=== PATIENT | female | born 1995 | race Two or more races ===

== ENCOUNTER 2024-05-22 17:32 | Inpatient (IN) | payer OTHER ==
[~2024-05-22] VITALS: Ht 160 cm; Wt 82.6 kg
[2024-05-22] VITALS (8 sets, daily range): BP systolic 107–138; BP diastolic 60–78
[2024-05-22] MEDS ORDERED: RINGERS SOLUTION,LACTATED 1,000 ML IV SCH (17:45)
[2024-05-22] MEDS ORDERED: PRENATAL TABLE1 EAC1 PO (18:09)
[2024-05-22] MEDS ORDERED: ERYTHROMYCIN BASE OPHT 1GM EACH TUBE OP ONE ×2 (18:28→20:15)
[2024-05-22] MEDS ORDERED: OXYTOCIN 20 UNITS/1000ML RL PIGGYBAG IV ONE (18:28)
[2024-05-22] MEDS ORDERED: LIDOCAINE HCL 1% 10ML VIAL ONE (18:29)
[2024-05-22] MEDS ORDERED: CHLORHEXIDINE GLUCONATE 120 ML BOTTLE TOP ONE (18:29)
[2024-05-22] MEDS ORDERED: CARBOPROST TROMETHAMINE 250 MCG/ML AMPUL IM ONE ×2 (18:49→20:15)
[2024-05-22] MEDS ORDERED: ACETAMINOPHEN 500 MG GEL..CAP PO PRN (19:30)
[2024-05-22] MEDS ORDERED: OXYTOCIN 1,000 ML IV SCH (19:30)
[2024-05-22] MEDS ORDERED: CHLORHEXIDINE GLUCONATE 120 ML BOTTLE TOP SCH (19:30)
[2024-05-22] MEDS ORDERED: ACETAMINOPHEN 500 MG GEL..CAP PO ONE (19:38)
[2024-05-22 19:44] LABS: PH,URINE 7.5 (5.0-8.0); URINE APPEARANCE Clear; URINE BILIRRUBIN Negative (NEGATIVE); URINE BLOOD Negative; URINE COLOR Yellow; URINE GLUCOSE Negative (NEGATIVE); URINE KETONE Negative (NEGATIVE); URINE LEUKOCYTE Negative; URINE NITRATE Negative; URINE PROTEIN Trace (NEGATIVE)
[2024-05-22 19:47] LABS: URINE BACTERIA 35.4 uL (0.0-1933); URINE EPITHELIAL CELLS 16.6 uL (0.0-38.8); URINE RBC 5.3 uL (0.0-20.8); URINE WBC 16.2 uL (0.0-23.2)
[2024-05-22 20:03] LABS: INR 0.94; PARTIAL THROMBOPLASTIN TIME 29.4 SECONDS (22.0-34.0); PROTHROMBIN TIME 10.3 SECONDS (9.0-11.5)
[2024-05-22 20:08] LABS: HEMATOCRIT 33.4 % (36.0-45.00); HEMOGLOBIN 11.2 g/dL (12.0-15.00); MEAN CELL VOLUME 86.8 fL (80.00-100.00); MEAN CORPUSCULAR HEMOGLOBIN 29.1 pg (27.00-32.0); MEAN CORPUSCULAR HGB CONC 33.6 g/dl (32.0-36.0); PLATELET COUNT 209 K/uL (150-450); RED BLOOD COUNT 3.85 M/uL (4.00-6.00); RED CELL DISTRIBUTION WIDTH 14.8 % (11.5-14.5)
[2024-05-23 02:03] LABS: HEMATOCRIT 32.8 % (36.0-45.00); HEMOGLOBIN 10.8 g/dL (12.0-15.00); MEAN CELL VOLUME 87.7 fL (80.00-100.00); MEAN CORPUSCULAR HEMOGLOBIN 28.8 pg (27.00-32.0); MEAN CORPUSCULAR HGB CONC 32.9 g/dl (32.0-36.0); PLATELET COUNT 196 K/uL (150-450); RED BLOOD COUNT 3.74 M/uL (4.00-6.00); RED CELL DISTRIBUTION WIDTH 14.6 % (11.5-14.5)
[2024-05-23 08:43] VITALS: BP 100/58
[2024-05-23] MEDS ORDERED: PNV,CALCIUM 72/IRON/FOLIC ACID 1 TAB TABLET PO SCH (09:00)
[2024-05-23 16:50] VITALS: BP 103/66
[2024-05-23 20:58] VITALS: BP 115/72
[2024-05-24 00:38] VITALS: BP 102/58
[2024-05-24 05:21] VITALS: BP 100/62
[2024-05-24 07:50] VITALS: BP 105/70
== END 2024-05-24 16:39 | disposition home or self-care (01) | DRG 807 ==
LOC: OB/GYN 17:32 → LDR 17:32 → OB/GYN 19:38
PROVIDERS: ADMIT Obstetrics & Gynecology; ATTEND Obstetrics & Gynecology
PROC: 10E0XZZ Delivery of Products of Conception, External Approach (ICD-10-PCS; principal; 2024-05-22)
PROC: 4A1HXCZ Monitoring of Products of Conception, Cardiac Rate, External Approach (ICD-10-PCS; 2024-05-22)
DX: O80 Encounter for full-term uncomplicated delivery (principal); Z37.0 Single live birth; Z3A.38 38 weeks gestation of pregnancy; Z20.822 Contact with and (suspected) exposure to COVID-19